=== PATIENT | male | born 1965 | race Caucasian/White ===

== ENCOUNTER 2020-10-10 09:15 | Outpatient (RCR) | payer BC, SELFPAY ==
[2020-09-29 11:50] VITALS: BMI 32.1
--- NOTE | 2020-09-29 12:15 | PC.ADMIT ---
Patient is a 55 year old male who was referred to [facility] by DCF d/t patient and his losing custody of their 3 children ages 7, 12, and 14. Patient and his where reportedly arguing in front of the children and ETOH was involved. Patients sister in law has the children. Patients went to rehab. Patient reports he has not had ETOH since February 2020. Reports he was drinking on the weekends an 18 PK of beer and some mixed drinks. Patient is attending AA meetings and denied any cravings for ETOH. Patient stated he is missing his children. Patient is alert and oriented x4. Calm and cooperative. Presents with depressed mood, anxious affect. Denied SI. Gave verbal permission to email him a copy of his safety plan. Medications reconciled with patient and patient's pharmacy. Patient reports taking medications as prescribed.
--- NOTE | 2020-09-29 12:52 | HO.PS.ADMBH ---
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 He stated that his and he, used to drink alcohol jeavely over the weekends and they engaged into an argument while intoxicated on June 2019 and DCF got involved and eventually his minor children were removed to a relative's home in January 2020. Since then, he admitted increased anxiety, poor sleep and guilty feelings. He was able to keep himself clean and sober since his children were removed and he has attended [facility] AA meetings. During the interview, he adamantly denied past history of colt, hypomania or psychosis, no prior psychiatric history and no evidence of safety concerns; he was always highly functional and able to work without any problems. He is able to contract for safety and at this moment, refused any medications prescribed. [facility] Medical Evaluation Reviewed: No [facility] Medical History Hypertension Jaw fracture Family History: Denies. Social History: The patient is the youngest of 2 siblings, his milestones were achieved at expected age, he was raised by his parents and he had a good childhood. 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 He is and he has 3 children. Substance History: Denies drugs. He reported that he started drinking alcohol on his mid 20's, he stated to be a weekend drinker . No prior history of detoxification treatment, rehabiliation treatment or medication treatment for alcohol. Trauma History: Denies Diagnostics Vital Signs (24Hr): Body Mass Index 32.1 Meds/Allergies Allergies Allergies Allergy/AdvReac Type Severity Reaction Status Date / Time Penicillins [PCN] Allergy Unknown Verified 09/29/20 11:47 Mental Status Exam Mental Status Exam Patient Appearance: Well Grooomed Patient Orientation: Person, Place, Time and Situation Level of Consciousness: Awake and Appropriate Patient Behavior: Cooperative Mood Description: Appropriate Affect Description: Constricted Patient Cognition Impaired: No Ability to Follow Directions: Good Speech Pattern: Clear Memory Description: Intact Hallucinations: None Delusions: Not Present Thought Process: Goal Oriented Thought Content: positive for Intact Judgement: Fair Assessment & Plan Assessment & Plan (1) Adjustment disorder: Status: Acute Code(s): F43.20 - Adjustment disorder, unspecified Assessment and Plan: The patient is an adult male with no prior psychiatrict contact, highly functional at baseline, referred to [facility] for anxiety in correlation of DCF involvment. DCF got involvde due to marital conflicts in the context of alcohol intoxication of the couple and the children had to be removed. Currently he is stable, clean and sober and assertive. Plan: At this moment, there is no evidence of MDD, or any mood disorder, so no psychotropic medication was prescribed. Clean and sober since January 2020, no need of Naltrexone or Campral at this moment. F/U next week. (2) Alcohol abuse: Status: Acute Code(s): F10.10 - Alcohol abuse, uncomplicated Certification I certify that partial hospital treatment is medically necessary due to the symptoms and problems resulting from the patient's mental illness and the failure to treat the patient at the partial hospital level of care would likely result in the patient requiring inpatient psychiatric care which could not be prevented at a less intensive level of care. Telehealth Telehealth Location of provider rendering services: practice address Location of patient: address on file Patient Identification confirmed using: Name, : Yes Telehealth method: video Patient verbally consented to treatment: Yes Patient verbally consented to billing insurance company: Yes Patient informed of any privacy concerns related to visit: No Time spent with patient (mins): 45
--- NOTE | 2020-10-02 15:06 | PC.NURSE ---
I called and put in a referral for a therapist at [facility] ([phone]). I spoke to Cornelius. She said she will work on referral and reach out to pt and to me with appt.
--- NOTE | 2020-10-06 13:25 | HO.PHPPROGNO ---
Subjective Subjective Date of Service: 10/06/20 Reason For Visit: DCF Involvement Subjective Notes: Conditional Voluntary Healthcare Proxy: No Guardianship: No Medical Problems Affecting Mental Status: No Interim History: The patient reports that he is doing well, no evidence of dysphoria, no recent relapse on alcohol for several months. He denies safety concerns. Side effects from medications: No Attending Groups: Yes Review of Systems Review of Systems Yes all other systems are reviewed and are negative Mental Status Exam Mental Status Exam Patient Appearance: Well Grooomed Patient Orientation: Person, Place, Time and Situation Level of Consciousness: Awake Patient Behavior: Appropriate and Cooperative Mood Description: Calm Affect Description: Calm Patient Cognition Impaired: No Ability to Follow Directions: Good Speech Pattern: Clear Memory Description: Intact Hallucinations: None Delusions: Not Present Thought Process: Goal Oriented Thought Content: positive for Intact Judgement: Fair Diagnostics Vital Signs (24Hr): Body Mass Index 32.1 Assessment & Plan Assessment & Plan (1) Adjustment disorder: Status: Acute Code(s): F43.20 - Adjustment disorder, unspecified Assessment and Plan: Middle age male with no other previous psychiatric condition besides alcohol use disorder, highly functional at baseline. He was compelled to go into [facility] since DCF removed her children due to alcohol abuse. So far, no evidence of depression, assertive. Plan: At this moment, no need of medications. (2) Alcohol abuse: Status: Acute Code(s): F10.10 - Alcohol abuse, uncomplicated Certification I certify that partial hospital treatment is medically necessary due to the symptoms and problems resulting from the patient's mental illness and the failure to treat the patient at the partial hospital level of care would likely result in the patient requiring inpatient psychiatric care which could not be prevented at a less intensive level of care. Greater than 50% of the session was spent on counseling and/or coordination of care Discharge Plan Discharge Attending provider: Josh Johnson Medications: No Action lisinopril-hydrochlorothiazide 20-12.5 mg Tablet 2 tab PO DAILY RF: 0 amlodipine 10 mg Tablet 10 mg PO DAILY RF: 0 Telehealth Telehealth Location of provider rendering services: practice address Location of patient: address on file Patient Identification confirmed using: Name, : Yes Telehealth method: video Patient verbally consented to treatment: Yes Patient verbally consented to billing insurance company: Yes Patient informed of any privacy concerns related to visit: No Time spent with patient (mins): 15
--- NOTE | 2020-10-10 11:27 | PC.NURSE ---
Per pt's request, I called and left a message with DCF worker Mell Bishop ([phone]) informing her of pt's engagement in and successful completion of the PHP program.
--- NOTE | 2020-10-10 16:44 | HO.PHPPROGNO ---
Subjective Subjective Date of Service: 10/10/20 Reason For Visit: DCF Involvement Interim History: Met with patient via Telehealth. He reports he has learned and gained valuable information from participating in this program. He reports he is regularly attending virtual Alcoholics anonymous meetings, and has been able to maintain sobriety. He and his plan to attend some local in-person AA meetings this weekend, as many groups are now opening back up in person, as the Covid restrictions are being lifted. He denies any type of psychiatric concerns, and feels that he is doing well. He has requested a letter stating that he has met with psychiatry several times while here, and that he has not been diagnosed with any psychiatric illness other than alcohol use disorder, and has not had need to be prescribed any psychiatric medications. Attending Groups: Yes Review of Systems Review of Systems Yes all other systems are reviewed and are negative Mental Status Exam Mental Status Exam Patient Appearance: Well Grooomed Patient Orientation: Person, Place, Time and Situation Level of Consciousness: Awake and Appropriate Patient Behavior: Appropriate and Cooperative Mood Description: Calm and Appropriate Affect Description: Calm and Appropriate Patient Cognition Impaired: No Ability to Follow Directions: Excellent Speech Pattern: Clear Memory Description: Intact Hallucinations: None Delusions: Not Present Thought Process: Intact, Goal Oriented and Linear Thought Content: positive for Intact Judgement: Good Diagnostics Vital Signs (24Hr): Body Mass Index 32.1 Assessment & Plan Patient educated on: diagnosis Certification I certify that partial hospital treatment is medically necessary due to the symptoms and problems resulting from the patient's mental illness and the failure to treat the patient at the partial hospital level of care would likely result in the patient requiring inpatient psychiatric care which could not be prevented at a less intensive level of care. Greater than 50% of the session was spent on counseling and/or coordination of care Discharge Plan Discharge Attending provider: Josh Johnson Additional Instructions: Appt with roc Lord at [facility] ([phone]) on 10/16/2020 at 1:15pm. Continue with participation in Alcoholics Anonymous. Medications: No Action lisinopril-hydrochlorothiazide 20-12.5 mg Tablet 2 tab PO DAILY RF: 0 amlodipine 10 mg Tablet 10 mg PO DAILY RF: 0 Stand Alone Forms: Patient Portal Discharge page Telehealth Telehealth Location of provider rendering services: practice address Location of patient: address on file Patient Identification confirmed using: Name, : Yes Telehealth method: video Patient verbally consented to treatment: Yes Patient verbally consented to billing insurance company: Yes Patient informed of any privacy concerns related to visit: Yes Time spent with patient (mins): 30
== END 2020-10-14 08:09 | disposition home or self-care (01) ==
LOC: HO.PHPA 09:15
PROVIDERS: Visit Provider Psychiatry & Neurology Psychiatry
DX: F43.20 Adjustment disorder, unspecified (principal); F10.11 Alcohol abuse, in remission
CPT/HCPCS: 90791; 90853; 99211

== ENCOUNTER 2022-10-21 09:48 | Emergency (ER) | payer BC, SELFPAY ==
--- NOTE | ~2022-10-21 | XR_ITS ---
EXAMINATION: XR SHOULDER, LEFT CLINICAL INFORMATION: Pain COMPARISON: None available. TECHNIQUE: Three views of the left shoulder. FINDINGS: No acute visible fracture or dislocation. Ossific density measuring up to 8 mm noted along the superior lateral margin of the left proximal humeral head suggesting calcific tendinosis of the supraspinatus tendon. Joint spaces and alignment are otherwise maintained. Soft tissues are unremarkable. Visualized portions of the left chest are unremarkable. XR/XR shoulder LT min 2V IMPRESSION: 1. No acute visible fracture or dislocation. 2. Ossific density measuring up to 8 mm noted along the superior lateral margin of the left proximal humeral head suggesting calcific tendinosis of the supraspinatus tendon.
[2022-10-21 09:52] VITALS: BP 184/101; PULSE 90; RESP 18; TEMP 36.4; O2SAT 96; BMI 33.1
--- NOTE | 2022-10-21 11:33 | ED_ITS ---
HPI - Extremity Problem General Chief complaint: Extremity Injury, Upper Stated complaint: L shoulder pain Time Seen by Provider: 10/21/22 11:06 Source: patient and RN notes reviewed Mode of arrival: ambulatory Limitations: no limitations History of Present Illness HPI Narrative: This is a 57-year-old male, with a past medical history of hypertension, presenting to the emergency department for evaluation of left shoulder pain since Tuesday. 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 Patient reports that since Tuesday he has had increasing pain in his left shoulder. Reports weakness left is unable to perform his normal activities as he is unable to lift his left arm without significant pain. Patient has been taking [id number] medications and applying ice and heat without any pain relief. Denies any history of similar symptoms in the past. Denies any fevers, chills, chest pain, shortness of breath, nausea, vomiting or diarrhea. No other complaints or concerns at this time. MD Complaint: joint pain Onset (ago): day(s) Pain Consistency: constant Location: left Severity scale (1-10): 8 Quality: aching and sharp Radiation: distal Relieving factors: nothing Exacerbating factors: nothing Associated symptoms: denies other symptoms Related Data Home Medications Medication Instructions Recorded Confirmed amlodipine 10 mg tablet 10 mg PO DAILY 09/29/20 09/29/20 lisinopril 20 2 tab PO DAILY 09/29/20 09/29/20 mg-hydrochlorothiazide 12.5 mg tablet Previous Rx's Medication Instructions Recorded ibuprofen 800 mg tablet 800 mg PO Q8H PRN pain #45 tabs 10/21/22 oxycodone-acetaminophen 5 mg-300 1 tab PO Q6H PRN pain #5 tabs 10/21/22 mg tablet oxycodone-acetaminophen 5 mg-325 1 tab PO Q6H PRN pain #5 tabs 10/21/22 mg tablet prednisone 20 mg tablet 40 mg PO DAILY 4 days #8 tabs 10/21/22 Allergies Allergy/AdvReac Type Severity Reaction Status Date / Time Penicillins [PCN] Allergy Unknown Verified 10/21/22 09:52 Review of Systems Review of Systems: Constitutional: No Weight loss, No Fever, No Chills ENT/Mouth: No Ear Pain, No Nasal Congestion, No Sinus Pain, No Hoarseness, No sore throat, No Rhinorrhea, No Swallowing Difficulty Cardiovascular: No Chest Pain, No SOB Respiratory: No Cough, No Sputum, No Wheezing Gastrointestinal: No Nausea, No Vomiting, No Diarrhea, No Constipation, No Abdominal pain Genitourinary: No Dysuria, No Urinary Frequency, No Hematuria, No Urinary Incontinence/retention, No Urgency, No Flank Pain Musculoskeletal: + joint pain, No Myalgias, No Joint Swelling Skin: No Skin Lesions, No rash Neuro: No Weakness, No Numbness, No Paresthesias Yes all other systems are reviewed and are negative Constitutional: Constitutional: Reports as per [facility] Past Medical History Medical History (Updated 10/21/22 @ 12:20 by IDRIS Spears) Adenomatous colon polyp Dyspepsia Hyperlipemia Hypertension Jaw fracture Social History Social History Household Members: Family Advance Directives: No Physical Exam Vital Signs: Vital Signs: Last Vital Signs Temp 97.5 F 10/21/22 09:52 Pulse 76 10/21/22 12:26 Resp 16 10/21/22 12:26 BP 161/94 H 10/21/22 12:26 Pulse Ox 96 10/21/22 09:52 O2 Del Method Room Air 10/21/22 09:52 BMI result Body Mass Index 33.1 Const: General: cooperative, comfortable and no acute distress Orientation/consciousness: patient oriented x3 Limitations: no limitations HEENT: Head: Yes normal to inspection, Yes normocephalic and Yes atraumatic Ears: hearing grossly normal bilaterally General nose exam: Normal external nose present Face and sinus: Yes normal facial exam Mouth: Normal oral and palatal mucosa present, oropharynx normal and moist mucous membranes Throat: Yes posterior oropharynx normal Eyes: General: appearance normal, both eyes and all related structures Eyelids: Yes eyelids normal Conjunctivae: conjunctivae normal Sclerae: sclerae normal Pupils: Equal, round and reactive pupils present EOM: EOMs intact bilaterally Neck: Neck: Yes normal visual inspection, Yes full ROM and Yes no lymphadenopathy Lymphatic: no lymphadenopathy noted Chest: Chest palpation & inspection: normal inspection of the chest Resp: Effort & Inspection: normal respiratory effort and able to speak in complete sentences Auscultation: clear to auscultation bilaterally, no crackles, no rales, no rhonchi and no wheezes Cardio: Rate: regular rate Rhythm: regular rhythm Heart sounds: S1 normal heart sound present and S2 normal heart sound present GI: Inspection: Yes normal to inspection Skin: General skin exam: no rashes or lesions noted Trauma: no lacerations or abrasions Wounds: no wounds Neuro: General: patient oriented x3 and moves all extremities Cranial nerves: Yes Equal, round and reactive pupils present Extrem: Other: Left shoulder normal to inspection, with tenderness to palpation throughout the entire left shoulder worse over the left bicipital groove and left AC joint. Positive drop test, only able to abduct to about 20?. Able to forward flex about 30?. Distal sensation circulation intact. General: Yes normal to inspection Right upper extremity: normal to inspection Left upper extremity: normal to inspection Right lower extremity: normal to inspection Left lower extremity: normal to inspection Medications Administered Discontinued Medications Generic Name Dose Route Start Last Admin Trade Name Quanq PRN Reason Stop Dose Admin Ketorolac Tromethamine 30 mg 10/21/22 11:29 10/21/22 11:36 Ketorolac Tromethamine 30 Mg/Ml Vial IVPUSH 10/21/22 11:30 30 mg ONCE ONE Administration Prednisone 40 mg 10/21/22 11:29 10/21/22 11:36 Prednisone 20 Mg Tablet PO 10/21/22 11:30 40 mg ONCE ONE Administration Medical Decision Making Medical Decision Making MDM Narrative: 57-year-old male presenting to the emergency department for evaluation of atraumatic left shoulder pain x 4 days. On examination patient has diffuse tenderness throughout the left shoulder, worse over the left AC joint and the left bicipital groove. Positive drop-arm test, limited range of motion secondary to pain. Patient appears visibly uncomfortable secondary to the pain in his left shoulder. Patient medicated with Toradol 30 mg IM with mild improvement, x-rays of the left shoulder reveal ossific density measuring up to 8 mm noted along the superior ateral margin of the left proximal humeral head suggesting calcific tendinosis of the supraspinatus tendon. Discussed these results with patient, given referral to Orthopedics, discharged on a course of prednisone, ibuprofen as well as several tablets of Percocet. Advised patient to only use stronger pain medication for severe pain. Advised that we will not refill this medication from the emergency department and he needs to follow up with the Orthopedics for primary care physician for further management of his pain. Patient given good understanding of this. Patient mildly hypertensive likely due to pain. Given return precautions. Differential Diagnosis Differential Diagnoses: The differential diagnosis associated with the presentation includes Left shoulder dislocation, rotator cuff injury, tendinitis, frozen shoulder Admission/Observation Consideration of admission/observation: Escalation of care including admission/observation considered Lab Data MDM Lab Attestation statement: I reviewed the patient's lab results. Radiology Impression Discussion of test interpretation with radiology: I have reviewed the radiologist's reading. Radiologist Impression: EXAMINATION: XR SHOULDER, LEFT CLINICAL INFORMATION: Pain? COMPARISON: None available.? TECHNIQUE: Three views of the left shoulder. FINDINGS: No acute visible fracture or dislocation. Ossific density measuring up to 8 mm noted along the superior lateral margin of the left proximal humeral head suggesting calcific tendinosis of the supraspinatus tendon. Joint spaces and alignment are otherwise maintained. Soft tissues are unremarkable. Visualized portions of the left chest are unremarkable.? XR/XR shoulder LT min 2V IMPRESSION: 1.? No acute visible fracture or dislocation. 2.? Ossific density measuring up to 8 mm noted along the superior lateral margin of the left proximal humeral head suggesting calcific tendinosis of the supraspinatus tendon. ? Dictated By: Solo Epstein MD Signed By: <Electronically signed by Solo Epstein MD in > 10/21/22 1035 External Record Review External record reviewed: Inpatient record, Office record, Outpatient record, Prior outpatient labs, Prior outpatient radiology, Primary care record and Outside ED record Discharge Plan Discharge Clinical Impression: Acute pain of left shoulder Patient Disposition: Home, Self-Care Additional Instructions: Your x-rays performed today revealed a ossific density measuring up to 8 mm noted along the superior lateral margin of the left proximal humeral head suggesting calcific tendinosis of the supraspinatus tendon . It is pertinent to follow-up with your primary care physician, and orthopedic referral as they can better manage her pain and symptoms. You may need further imaging of this. Continue to gently stretch and move the left shoulder to prevent frozen shoulder. Call today to make an appointment. Take prescribed medications as directed. Percocet can cause drowsiness, do not drink alcohol or drive while taking this medication. Only take this for severe pain. This medication cannot be refilled by the emergency department therefore it is critical to follow-up with you primary care physician. If any new or worsening symptoms occur please return for re-evaluation Prescriptions: New prednisone 20 mg tablet 40 mg PO DAILY 4 Days Qty: 8 0RF ibuprofen 800 mg tablet 800 mg PO Q8H PRN (Reason: pain) Qty: 45 0RF oxycodone-acetaminophen 5-300 mg tablet 1 tab PO Q6H PRN (Reason: pain) Qty: 5 0RF Rx Instructions: Partial Fill upon patient request. oxycodone-acetaminophen 5-325 mg tablet 1 tab PO Q6H PRN (Reason: pain) Qty: 5 0RF Rx Instructions: Partial Fill upon patient request. No Action lisinopril-hydrochlorothiazide 20-12.5 mg Tablet 2 tab PO DAILY Rx Instructions: Take 2 tabs daily amlodipine 10 mg Tablet 10 mg PO DAILY Referrals: [facility] [place] [facility] [Provider Group] Interventions: ED Discharge Assessment Last Done: 10/21/22 12:28 Discharge Date/Time: 10/21/22 12:28
[2022-10-21] MEDS: predniSONE 20 MG TABLET 40 MG PO (11:36)
[2022-10-21] MEDS: Ketorolac Tromethamine 30 MG/ML VIAL IVPUSH (11:36)
--- NOTE | 2022-10-21 12:23 | PC.NURSE ---
pt medicated per jul for 10 left shoulder pain
[2022-10-21 12:26] VITALS: BP 161/94; PULSE 76; RESP 16
== END 2022-10-21 12:28 | disposition home or self-care (01) ==
PROVIDERS: Emergency Provider Emergency Medicine
DX: M25.512 Pain in left shoulder (principal); I10 Essential (primary) hypertension; E78.5 Hyperlipidemia, unspecified
CPT/HCPCS: 73030; 96374; 99283; 99284; J1885

== ENCOUNTER → 2022-11-05 09:48 | Outpatient (BNVA) | payer BC, SELFPAY | PROVIDERS: PCP Internal Medicine; Visit Provider Orthopaedic Surgery ==

== ENCOUNTER 2023-04-17 13:03 | Emergency (ER) | payer BC, SELFPAY ==
--- NOTE | ~2023-04-17 | US_ITS ---
EXAMINATION: US VENOUS ULTRASOUND WITH DOPPLER LOWER EXTREMITY, RIGHT CLINICAL INFORMATION: Right knee pain and swelling. COMPARISON: None available. TECHNIQUE: Ultrasound of the deep veins is performed from the hip to the calf with compression sonography and color and pulse Doppler assessment. Spectral analysis with color-flow imaging is performed. FINDINGS: There is normal venous compression and respiratory variation and augmented flow. The visualized common femoral vein, superficial femoral vein, profunda femoral vein, popliteal vein, and the trifurcation region shows no evidence of deep venous thrombosis. 5.7 x 1.3 x 3.9 cm Ramírez cyst. US/US venous duplex LE RT IMPRESSION: No DVT demonstrated in the right lower extremity. 5.7 cm Ramírez's cyst.
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
[2023-04-17 13:29] VITALS: BP 139/78; PULSE 85; RESP 18; TEMP 36.6; O2SAT 98; BMI 34.4
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
== END 2023-04-17 14:55 | disposition home or self-care (01) ==
PROVIDERS: Emergency Provider Emergency Medicine; PCP Internal Medicine
DX: M71.21 Synovial cyst of popliteal space [Baker], right knee (principal); M25.561 Pain in right knee; M79.661 Pain in right lower leg
CPT/HCPCS: 73564; 93971; 99282; 99284